=== PATIENT | male | born 1970 | race Caucasian/White ===

== ENCOUNTER 2016-12-19 03:38 | Emergency (ER) | payer BC, OTHER ==
[~2016-12-19] VITALS: Ht 180.3 cm; Wt 108.8 kg
[2016-12-19 03:44] VITALS: TEMP 36.5; Ht 180.3 cm; Wt 108.8 kg
[2016-12-19 04:28] LABS: BASO % 0.6 %; BASO ABS # 0.04 K/uL (0-0.2); COMPLETE YES; EOS % 4.9 %; HEMATOCRIT 42.6 % (42-52); IG% 0.3 %; LYMPH % 41.3 %; MEAN CELL VOLUME 86.6 fL (80-100); MEAN CORPUSCULAR HEMOGLOBIN 30.9 pg (25-34); MEAN CORPUSCULAR HGB CONC 35.7 g/dl (32-36); MEAN PLATELET VOLUME 9.5 fL (7.4-10.4); NEUT % 42.9 %; PLATELET COUNT 291 K/uL (130-400); RED BLOOD COUNT 4.92 M/uL (4.7-6.1); WHITE BLOOD COUNT 6.78 K/uL (4.8-10.8)
[2016-12-19 04:48] LABS: ALT/SGPT 47 U/L (12-78); AST/SGOT 19 U/L (15-37); BLOOD UREA NITROGEN 14 mg/dl (7-18); BUN/CREATININE RATIO 12.5 (10-20); CALCIUM 8.6 mg/dl (8.5-10.1); CARBON DIOXIDE 29 mmol/L (21-32); CHLORIDE 104 mmol/L (98-107); GLUCOSE 130 mg/dl (70-99); POTASSIUM 3.8 mmol/L (3.5-5.1); SODIUM 141 mmol/L (136-145)
[2016-12-19] MEDS ORDERED: KETOROLAC TROMETHAMINE 30 MG/ML VIAL IV STA (04:48)
[2016-12-19 04:53] LABS: ALKALINE PHOSPHATASE 70 U/L (45-117)
[2016-12-19] MEDS ORDERED: NAPR-1169 PO (05:37)
--- NOTE | 2016-12-19 05:40 | EMERGENCY ROOM VISIT NOTE ---
History First contact with patient: 03:43 Chief Complaint: SHOULDER PAIN Stated Complaint: SHOULDER PAIN History of Present Illness The patient is a 46 year old male who presents to the Emergency Room with complaints of severe left shoulder pain that goes down his entire arm for the past several hours. Patient did do some extra work yesterday. Nothing overtly strenuous though. He describes pain as severe, 8 out of 10. Nothing makes it better or worse. Patient denies chest pain, dyspnea, fever, chills, nausea, vomiting, diarrhea, diaphoresis, back pain, leg pain or swelling, abdominal pain. No injury to the area. No prior history of similar symptoms in the past. No prior heart disease. No family history of heart disease. He does not smoke. No blood pressure, no cholesterol. No Diabetes. Review of Systems See HPI for pertinent positives & negatives. A total of 10 systems reviewed and were otherwise negative. Past Medical/Surgical History none Social History Smoking Status: Never Smoker Smokeless Tobacco Use: No Alcohol Use: none Drug Use: none Occupation Status: employed Current/Historical Medications Scheduled Naproxen (Naprosyn), 500 MG PO BID Allergies Coded Allergies: No Known Allergies (Unverified , 12/19/16) Physical Exam Vital Signs Date Time Temp Pulse Resp B/P Pulse Ox O2 Delivery O2 Flow Rate FiO2 12/19/16 05:52 79 18 122/85 96 Room Air 12/19/16 04:57 Room Air 12/19/16 04:57 Room Air 12/19/16 04:23 82 18 150/100 96 Room Air 12/19/16 03:44 36.5 82 20 161/97 96 Room Air Physical Exam VITALS: Vitals are noted on the nurse's note and reviewed by myself. Vital signs stable. GENERAL: Pleasant male, in no acute distress, nondiaphoretic, well-developed well-nourished. SKIN: The skin was without rashes, erythema, edema, or bruising. There is no tenting of the skin. Capillary reflex less than 2 seconds. HEAD: Normocephalic atraumatic. EARS: External auditory canals clear, tympanic membranes pearly young without erythema or effusion bilaterally. EYES: Pupils equal round and reactive to light and accommodation. Conjunctivae without injection, sclerae without icterus. Extraocular movements intact. NOSE: Patent, turbinates without inflammation or discharge. MOUTH: Mucous membranes moist. Pharynx without erythema or exudate. Uvula midline. Airway patent. Tongue does not deviate. NECK: Supple without nuchal rigidity. No lymphadenopathy. No thyromegaly. Cervical spine is nontender. No JVD. HEART: Regular rate and rhythm without murmurs gallops or rubs. LUNGS: Clear to auscultation bilaterally without wheezes, rales or rhonchi. No dullness to percussion. No retractions or accessory muscle use. ABDOMEN: Positive bowel sounds x 4. Normal tympanic percussion. Soft, nontender, without masses or organomegaly. King sign negative. No guarding or rebound tenderness. MUSCULOSKELETAL: No muscle atrophy, erythema, or edema noted. Left shoulder, humerus, elbow, forearm, wrist and hand nontender to palpation. Full range of motion without pain. Radial pulses +2 equal present bilaterally. NEURO: Patient was alert and oriented to person place and time. Normal sensation to light and sharp touch. No focal neurological deficits. Medical Decision & Procedures Laboratory Results 12/19/16 04:10 Red Blood Count 4.92, Mean Corpuscular Volume 86.6, Mean Corpuscular Hemoglobin 30.9, Mean Corpuscular Hemoglobin Concent 35.7, Mean Platelet Volume 9.5, Neutrophils (%) (Auto) 42.9, Lymphocytes (%) (Auto) 41.3, Monocytes (%) (Auto) 10.0, Eosinophils (%) (Auto) 4.9, Basophils (%) (Auto) 0.6, Neutrophils # (Auto ) 2.91, Lymphocytes # (Auto) 2.80, Monocytes # (Auto) 0.68, Eosinophils # (Auto ) 0.33, Basophils # (Auto) 0.04 12/19/16 04:10 Test 12/19/16 04:10 12/19/16 05:42 White Blood Count 6.78 K/uL (4.8-10.8) Red Blood Count 4.92 M/uL (4.7-6.1) Hemoglobin 15.2 g/dL (14.0-18.0) Hematocrit 42.6 % (42-52) Mean Corpuscular Volume 86.6 fL (80-100) Mean Corpuscular Hemoglobin 30.9 pg (25-34) Mean Corpuscular Hemoglobin Concent 35.7 g/dl (32-36) Platelet Count 291 K/uL (130-400) Mean Platelet Volume 9.5 fL (7.4-10.4) Neutrophils (%) (Auto) 42.9 % Lymphocytes (%) (Auto) 41.3 % Monocytes (%) (Auto) 10.0 % Eosinophils (%) (Auto) 4.9 % Basophils (%) (Auto) 0.6 % Neutrophils # (Auto) 2.91 K/uL (1.4-6.5) Lymphocytes # (Auto) 2.80 K/uL (1.2-3.4) Monocytes # (Auto) 0.68 K/uL (0.11-0.59) Eosinophils # (Auto) 0.33 K/uL (0-0.5) Basophils # (Auto) 0.04 K/uL (0-0.2) RDW Standard Deviation 39.6 fL (36.4-46.3) RDW Coefficient of Variation 12.4 % (11.5-14.5) Immature Granulocyte % (Auto) 0.3 % Immature Granulocyte # (Auto) 0.02 K/uL (0.00-0.02) Anion Gap 8.0 mmol/L (3-11) Est Creatinine Clear Calc Drug Dose 103.0 ml/min Estimated GFR () 91.5 Estimated GFR (Non- 79.0 BUN/Creatinine Ratio 12.5 (10-20) Calcium Level 8.6 mg/dl (8.5-10.1) Total Bilirubin 0.6 mg/dl (0.2-1) Direct Bilirubin 0.1 mg/dl (0-0.2) Aspartate Amino Transf (AST/SGOT) 19 U/L (15-37) Alanine Aminotransferase (ALT/SGPT) 47 U/L (12-78) Alkaline Phosphatase 70 U/L (45-117) Total Creatine Kinase 71 U/L (39-308) Creatine Kinase MB < 0.5 ng/ml (0.5-3.6) Creatine Kinase MB Ratio (0-3.0) Troponin I < 0.015 ng/ml (0-0.045) Total Protein 7.8 gm/dl (6.4-8.2) Albumin 4.0 gm/dl (3.4-5.0) Bedside Troponin I 0.000 ng/ml (0-0.045) Medications Administered Medications (Trade) Dose Ordered Sig/Charlotte Route Start Time Stop Time Status Last Admin Dose Admin Ketorolac Tromethamine (Toradol Inj) 30 mg NOW STAT IV 12/19/16 04:48 12/19/16 04:55 DC 12/19/16 04:48 30 MG ED Course Prior records/ancillary studies reviewed. Triage Nursing notes reviewed. The patient's history was concerning for left arm pain Differential diagnosis: Etiologies such as cervical radiculopathy, strain, strain, nerve entrapment, thoracic outlet syndrome, brachial plexus problem, cardiac ischemia, aortic dissection, pulmonary embolism, pneumonia, pneumothorax, musculoskeletal, infections, pericarditis, myocarditis, esophageal rupture, gastrointestinal, as well as others were entertained. Physical examination: As above. ER treatment provided: Patient was observed On reassessment the patient felt better. Diagnostic interpretation by me: The electrocardiogram was negative for pathologic change. Normal sinus, normal intervals, incomplete right bundle branch block, no acute ST-T changes. Impression normal sinus rhythm with incomplete bundle branch block interpreted by myself The labs revealed 2 troponins 2 negative. No worrisome anemia. Imaging studies: Chest x-ray with no acute consolidation, pneumothorax or free air per my interpretation CT C SPINE: slight reversal of the cervical lordosis may be positional or due to muscle spasm. Multilevel degenerative changes in the mid to lower cervical spine. No severe central canal or foraminal stenosis Radiologist: Catalina Copeland M.D. Exam and history seem consistent with cervical radiculopathy. Patient was advised to follow-up with family care for further evaluation and workup for this. Patient was neurovascularly and neurologically intact. Troponin 2 negative. Normal EKG. He was advised to follow-up family care in a day or 2 or here in the ER sooner for chest pain, difficulty breathing, numbness, tingling, worsening signs or symptoms or as needed.By the evaluation outlined above emergent etiologies such as cardiac ischemia, aortic dissection, pulmonary embolism, pneumonia, pneumothorax, infections, pericarditis, myocarditis, gastrointestinal, as well as others were deemed relatively unlikely. The pt informed about the findings as listed above. All questions were answered and pleased with the treatment. Return instructions were outlined and the patient was discharged in stable condition. Outpatient prescription management: naproxen Referral: The patient was referred back to primary care physician for follow-up in 2 to 3 days for a recheck of the current condition. Case reviewed by attending Medical Decision As above Impression Primary Impression: Cervical radiculopathy Additional Impression: Hyperglycemia Departure Information Dispostion Home / Self-Care Condition GOOD Prescriptions Naproxen (Naprosyn) 500 Mg Tab 500 MG PO BID, #30 TAB Prov: Neva Robison .DONALD 12/19/16 Referrals Felisha Busby M.D. (PCP) Patient Instructions My [facility] Additional Instructions Recheck you blood sugar with family doctor, it was high today in the ER. Naproxen may be used for fever or pain. Use 500mg every 12 hours as needed. Take with food. Avoid using more than 1000mg in a 24 hour period. Do not use 1000mg per day for more than three consecutive days without physician direction. Prolonged inappropriate use can lead to stomach upset or ulcers. (AND/OR) Acetaminophen(Tylenol) may be used for fever or pain. Use 1000mg every six hours as needed. Avoid using more than 3000mg in a 24 hour period. Rest and drink plenty of fluids as tolerated. Continue current medications. Avoid strenuous activities and anything that worsens your pain. Resume normal activities once your symptoms resolve. Return to the ER immediately for worsening or persistent arm pain, abdominal pain, vomiting, fevers, chest pains, difficulty breathing, worsening of your condition, or as needed. Follow up with your primary physician in 2-3 days for a recheck of your current condition. Problem Qualifiers
[2016-12-19 05:52] VITALS: BP 122/85; PULSE 79; O2SAT 96
--- NOTE | 2016-12-19 07:19 | DIAGNOSTIC IMAGING REPORT ---
CT SCAN OF THE CERVICAL SPINE CLINICAL HISTORY: Left arm pain. COMPARISON STUDY: No priors. TECHNIQUE: CT scan of the cervical spine is performed from the skull base to the upper thoracic spine. Images are reviewed in the axial, sagittal, and coronal planes. IV contrast was not administered for this examination. CT DOSE: 323.73 mGy.cm FINDINGS: Skeletal structures: The skeletal structures are well mineralized. There is no evidence of fracture or subluxation involving the cervical spine. Vertebral body height and alignment are maintained. There is straightening of the cervical lordosis with mild reversal centered at C4. The odontoid process and lateral masses are intact. The atlantoaxial articulation is preserved noting mild productive degenerative change. The spinous processes appear intact. Small anterior osteophytes are seen in the lower cervical region. No significant neural foraminal stenosis is identified. Intervertebral discs: The disc spaces are well maintained. Central canal: Posterior disc osteophyte complexes at C4-C5 and C5-C6 likely contribute to mild acquired compromise of the central canal. Soft tissues: The prevertebral and paraspinous soft tissues are within normal limits. Calcification is noted within the nuchal ligament. The thyroid gland appears mildly enlarged and heterogeneous. Calvarium: The visualized calvarium at the skull base appears intact. Brain parenchyma: Partially visualized brain parenchyma the skull base is within normal limits. Sinuses and mastoids: The visualized paranasal sinuses are clear. There is a right mastoid effusion. The left mastoid air cells are well pneumatized. Lung apices: Clear as visualized. IMPRESSION: 1. There is no evidence of fracture or subluxation involving the cervical spine. 2. Mild spondylotic change as above, greatest at C4-C5 and C5-C6. Electronically signed by: Sheldon Anguiano M.D. 12/19/2016 7:16 AM Dictated Date/Time: 12/19/2016 7:13 AM
--- NOTE | 2016-12-19 08:15 | DIAGNOSTIC IMAGING REPORT ---
SINGLE VIEW CHEST CLINICAL HISTORY: Atypical chest pain. FINDINGS: An AP, portable, upright chest radiograph is obtained. No prior studies are available for comparison at the time of dictation. The examination is degraded by portable technique and patient rotation. The cardiomediastinal silhouette is unremarkable. There is mild elevation of left hemidiaphragm. The lungs and pleural spaces are clear. No pneumothorax is seen. The bony thorax is grossly intact. IMPRESSION: No active disease in the chest. Electronically signed by: Sheldon Anguiano M.D. 12/19/2016 8:13 AM Dictated Date/Time: 12/19/2016 8:12 AM
[2016-12-19] MEDS ORDERED: OXYC1TAB3 PO (17:54)
[2016-12-19] MEDS ORDERED: METH4PAK PO (17:54)
== END 2016-12-19 06:17 | disposition home or self-care (01) ==
LOC: C.EDB 03:39 → C.EDA 06:17
DX: M54.12 Radiculopathy, cervical region (principal); R73.9 Hyperglycemia, unspecified

== ENCOUNTER 2016-12-19 15:16 | Emergency (ER) | payer BC ==
[~2016-12-19] VITALS: Ht 180.3 cm; Wt 106.9 kg
[~2016-12-19 15:16] MED LIST: NAPR-1169 PO
[2016-12-19 15:19] VITALS: TEMP 36.4; Ht 180.3 cm; Wt 106.9 kg
[2016-12-19] MEDS ORDERED: ONDANSETRON INJ 2 MG/ML 2 ML VIAL IV STA (15:26)
[2016-12-19] MEDS ORDERED: DEXAMETHASONE SOD INJ 10 MG/ML VIAL IV ONE (15:30)
[2016-12-19] MEDS: MoRPHine SULFATE 10 MG/ML CARP/VIAL IV PRN ×3 (15:59→18:07)
--- NOTE | 2016-12-19 16:04 | EMERGENCY ROOM VISIT NOTE ---
History Report prepared by Jonathan: Lizet Cochran Under the Supervision of: Dr. Sheldon Prince M.D. First contact with patient: 15:24 Chief Complaint: ARM PAIN Stated Complaint: INCREASED PAIN - LEFT ARM - SEEN IN ER LAST PM History of Present Illness The patient is a 46 year old male who presents to the Emergency Room with complaints of worsening left arm and neck pain beginning yesterday afternoon. The patient states that the pain began in his neck yesterday. He took Ibuprofen and went to bed. He notes he woke up around 2am this morning in significant pain and came to the ED. A CT scan and X-ray were done. The CT scan showed bone spurring of the neck but no fractures. His lab testing was normal including his heart laboratories. He states that today around noon the pain worsened to be a 9 /10 in severity. He describes the pain as "Jesus horse" kind of sensation. The pain is also now radiating into his entire left arm. The patient denies shortness of breath, chest pain, trauma to arm or neck, or pain worsening with exertion. Source of History: patient Onset: yesterday afternoon Position: neck, arm (left) Symptom Intensity: 9/10 Quality: other ("Jesus horse" sensation) Timing: worsening Associated Symptoms: No SOB, No chest pain Note: Patient denies trauma to neck or arm. Review of Systems See HPI for pertinent positives & negatives. A total of 10 systems reviewed and were otherwise negative. Past Medical & Surgical Medical Problems: (1) No Known Active Medical Problems Family History Cancer Social History Smoking Status: Never Smoker Alcohol Use: none Drug Use: none Marital Status: Housing Status: lives with significant other Occupation Status: employed Current/Historical Medications Scheduled Methylprednisolone (Medrol Dosepak), 1 PKT PO UD Naproxen (Naprosyn), 500 MG PO BID Scheduled PRN Oxycodone Ir (Roxicodone Ir), 1-2 TAB PO Q4H PRN for Pain Allergies Coded Allergies: No Known Allergies (Unverified , 12/19/16) Physical Exam Vital Signs Date Time Temp Pulse Resp B/P Pulse Ox O2 Delivery O2 Flow Rate FiO2 12/19/16 18:16 80 20 117/80 100 12/19/16 17:06 87 12/19/16 16:52 96 Room Air 12/19/16 16:52 82 20 123/84 96 Room Air 12/19/16 15:19 36.4 90 18 156/97 96 Room Air Physical Exam GENERAL: Patient does have some pain relief putting left arm over his head and the pain worsens with compression of cervical spine. HEENT: No acute trauma, normocephalic atraumatic, mucous membranes moist, no nasal congestion, no scleral icterus. NECK: No stridor, tracheal midline, somewhat tender to palpate left posterior cervical musculature and the left trapezius muscle has some slight spasm. LUNGS: Clear to auscultation bilaterally, no wheeze, no rhonchi, breath sounds equal. HEART: Without murmurs gallops or rubs, regular rate and rhythm. ABDOMEN: Soft, nontender, bowel sounds positive, no hernias, no peritonitis. EXTREMITIES: No cyanosis or edema, full range of motion of all the joints without pain or difficulty, no signs for acute trauma. Strong and equal radial pulses bilaterally. NEUROLOGIC: Oriented x 3, no acute motor or sensory deficits, no focal weakness. SKIN: No rash, no jaundice, no diaphoresis. Medical Decision & Procedures ER Provider Diagnostic Interpretation: MRI results as stated below per my review and radiologist interpretation: MRI OF THE CERVICAL SPINE WITHOUT CONTRAST CLINICAL HISTORY: Severe left arm and shoulder pain. Numbness. COMPARISON: CT of the cervical spine December 19, 2016. TECHNIQUE: Utilizing a 1.5 Tete magnet and dedicated coil, multiplanar, multiecho imaging of the cervical spine was performed without IV contrast. FINDINGS: There is straightening of the normal cervical lordosis. Vertebral body heights are maintained and there is no marrow replacement or marrow edema. Cervical cord signal and caliber are normal. There is no intracanalicular mass or fluid collection. Visualized portions of the posterior fossa are unremarkable. C2-C3: The central canal and neural foramen are patent. C3-C4: There is minimal posterior disc osteophyte complex. There is minimal narrowing of the central canal. The neural foramen are patent. C4-C5: Mild posterior disc osteophyte complex is noted. There is mild narrowing of the central canal. The neural foramen are patent. C5-C6: There is a moderate to large left paracentral/foraminal disc protrusion that results in moderate narrowing of the left aspect of the canal. This contacts and deforms the left ventral aspect of the cord. There is marked narrowing of the proximal left neural foramen. There is mild narrowing of the right neural foramen. C6-C7: The central canal and neural foramen are patent. C7-T1: The central canal and neural foramen are patent. IMPRESSION: 1. Moderate to large left paracentral/left foraminal disc protrusion at C5-C6 that results in moderate narrowing of the left aspect of the canal and marked narrowing of the left neural foramen at this level. 2. Otherwise, mild degenerative changes of the cervical spine, as described above. 3. Normal cervical cord signal and caliber. Electronically signed by: Luca Oviedo M.D. 12/19/2016 4:53 PM Dictated Date/Time: 12/19/2016 4:47 PM Laboratory Results Test 12/19/16 15:53 Troponin I < 0.015 ng/ml (0-0.045) Laboratory results reviewed by me. Medications Administered Medications (Trade) Dose Ordered Sig/Charlotte Route Start Time Stop Time Status Last Admin Dose Admin Dexamethasone Sodium Phosphate (Decadron Inj) 10 mg NOW ONCE IV 12/19/16 15:30 12/19/16 15:34 DC 12/19/16 15:58 10 MG Morphine Sulfate (MoRPHine SULFATE INJ) 6 mg Q15M PRN IV 12/19/16 15:30 12/19/16 18:47 DC 12/19/16 18:07 6 MG Ondansetron HCl (Zofran Inj) 4 mg NOW STAT IV 12/19/16 15:26 12/19/16 15:34 DC 12/19/16 15:57 4 MG ECG Indication: back/shoulder pain Rate (beats per minute): 87 Rhythm: normal sinus Findings: no acute ischemic change, no ectopy ED Course 1525: The patient was evaluated in room C7. A complete history and physical exam was performed. 1526: Zofran Inj 4 mg IV. 1530: Morphine Sulfate Inj 6 mg IV, Decadron Inj 10 mg IV. 1708: I reevaluated the patient and reviewed his MRI results with him. 1735: I spoke with Dr. Jones about the patient. He will have the patient follow up in the office on Thursday. He would like the patient to be sent home with pain medication and steroids. 1755: Reevaluated the patient. Discussed results and discharge instructions: He verbalized understanding and agreement. The patient is ready for discharge. Medical Decision The patient is a 46 year old male who presents to the ED with complaints of left arm pain. Differential diagnoses considered include herniated cervical disc disease, nerve impingement, muscle spasm, cardiac ischemia, neurovascular compromise. The patient presents with left shoulder and neck pain. On exam, there was no evidence for left upper extremity neurovascular compromise. The patient's pain seemed to worsen with cervical spine compression. His pain lessened when he had his left arm up over his head. EKG was done, no acute ischemia. Cardiac troponin testing did not show any elevation. I did review the patient's other blood work and chest film done earlier today-no significant abnormalities. An MRI of the cervical spine was done, there was a large C5-C6 left-sided disc herniation with foraminal compromise. I talked to the patient and discussed his MRI findings. He had received IV Decadron, IV morphine and IV Zofran, he was more comfortable. I spoke with the on-call spinal surgeon. The patient is being discharged with an appointment in a few days. He may require surgery if not improving with time , steroids and other conservative measures. The patient was encouraged to return for worsening discomfort. [place] Drug Monitoring Program Search Results: patient reviewed within database, no issues identified Consults Time Called: 173 Consulting Physician: Dr. Jones - Surgery Returned Call: [address] Jones about the patient. He will have the patient follow up in the office on Thursday. He would like the patient to be sent home with pain medication and steroids. Impression Primary Impression: Cervical disc herniation Additional Impression: Arm pain, left Scribe Attestation The scribe's documentation has been prepared under my direction and personally reviewed by me in its entirety. I confirm that the note above accurately reflects all work, treatment, procedures, and medical decision making performed by me. Departure Information Dispostion Home / Self-Care Prescriptions Methylprednisolone (MEDROL DOSEPAK) 4 Mg Ernie 1 PKT PO UD for 6 Days, #1 PKT Prov: Sheldon Prince M.D. 12/19/16 Oxycodone Ir (Roxicodone Ir) 5 Mg Tab 1-2 TAB PO Q4H Y for Pain, #20 TAB Prov: Sheldon Prince M.D. 12/19/16 Referrals Felisha Busby M.D. (PCP) Forms HOME CARE DOCUMENTATION FORM, IMPORTANT VISIT INFORMATION Patient Instructions My [facility] Additional Instructions call and set up appt with Dr. Jones--call thursday in the early am medrol dos pack as directed oxy ir 1-2 tab every 4 hours for pain otc laxative to prevent constipation continue the meds prescribed earlier return for fever or uncontrolled pain Problem Qualifiers
[2016-12-19 16:52] VITALS: O2SAT 96
--- NOTE | 2016-12-19 16:55 | DIAGNOSTIC IMAGING REPORT ---
MRI OF THE CERVICAL SPINE WITHOUT CONTRAST CLINICAL HISTORY: Severe left arm and shoulder pain. Numbness. COMPARISON: CT of the cervical spine December 19, 2016. TECHNIQUE: Utilizing a 1.5 Ette magnet and dedicated coil, multiplanar, multiecho imaging of the cervical spine was performed without IV contrast. FINDINGS: There is straightening of the normal cervical lordosis. Vertebral body heights are maintained and there is no marrow replacement or marrow edema. Cervical cord signal and caliber are normal. There is no intracanalicular mass or fluid collection. Visualized portions of the posterior fossa are unremarkable. C2-C3: The central canal and neural foramen are patent. C3-C4: There is minimal posterior disc osteophyte complex. There is minimal narrowing of the central canal. The neural foramen are patent. C4-C5: Mild posterior disc osteophyte complex is noted. There is mild narrowing of the central canal. The neural foramen are patent. C5-C6: There is a moderate to large left paracentral/foraminal disc protrusion that results in moderate narrowing of the left aspect of the canal. This contacts and deforms the left ventral aspect of the cord. There is marked narrowing of the proximal left neural foramen. There is mild narrowing of the right neural foramen. C6-C7: The central canal and neural foramen are patent. C7-T1: The central canal and neural foramen are patent. IMPRESSION: 1. Moderate to large left paracentral/left foraminal disc protrusion at C5-C6 that results in moderate narrowing of the left aspect of the canal and marked narrowing of the left neural foramen at this level. 2. Otherwise, mild degenerative changes of the cervical spine, as described above. 3. Normal cervical cord signal and caliber. Electronically signed by: Luca Oviedo M.D. 12/19/2016 4:53 PM Dictated Date/Time: 12/19/2016 4:47 PM
[2016-12-19] MEDS ORDERED: OXYC1TAB3 PO (17:54)
[2016-12-19] MEDS ORDERED: METH4PAK PO (17:54)
[2016-12-19 18:16] VITALS: BP 117/80; PULSE 80; O2SAT 100
== END 2016-12-19 18:20 | disposition home or self-care (01) ==
LOC: C.EDB 15:17 → C.EDC 18:20
DX: M50.20 Other cervical disc displacement, unspecified cervical region (principal); M79.602 Pain in left arm; Z80.9 Family history of malignant neoplasm, unspecified

== ENCOUNTER 2024-09-23 03:40 | Inpatient (IN) ==
[2024-09-23] MEDS: PROMETHAZINE 12.5 MG/50.5 ML BAG IV STA (04:23)
[2024-09-23 04:28] LABS: Basophils # (auto) 0.05 K/uL (0.00-0.20); Basophils % (auto) 0.5 %; Eosinophils # (auto) 0.11 K/uL (0.00-0.50); Hematocrit (blood only) 31.9 % (42.0-52.0); Hemoglobin 10.2 g/dl (14.0-18.0); Immature Granulocytes # (auto) 0.06 K/uL (0.01-0.20); Immature Granulocytes % (auto) 0.5 %; Lymphocytes # (auto) 0.72 K/uL (1.20-3.40); Lymphocytes % (auto) 6.5 %; Mean Corpuscular Volume 78.2 fL (80.0-100.0); Mean Platelet Volume 9.6 fL (9.4-12.4); Monocytes # (auto) 1.02 K/uL (0.11-0.59); Monocytes % (auto) 9.2 %; Neutrophils # (auto) 9.11 K/uL (1.40-6.50); Neutrophils % (auto) 82.3 %; Platelet Count 583 K/uL (130-400); RDW Coefficient of Variation 20.3 % (11.5-14.5); RDW Standard Deviation 57.1 fL (36.4-46.3); Red Blood Count 4.08 M/uL (4.70-6.10); White Blood Count 11.07 K/ul (4.8-10.8)
[2024-09-23 04:45] LABS: iSTAT Creatinine 1.1 mg/dl (0.6-1.3); iSTAT Hemoglobin 10.5 g/dl (14.0-18.0); iSTAT Ionized Calcium 1.09 mmol/l (1.12-1.32); iSTAT Potassium 3.4 mmol/L (3.3-5.0)
[2024-09-23 04:46] LABS: Albumin Globulin Ratio 1.1 (0.9-2); Albumin Level 3.7 gm/dl (3.4-5.0); BUN Creatinine Ratio 8.8 (10-20); Calcium 9.2 mg/dl (8.6-10.3); Creatinine Clr Calc Pharmacy 118.3 ml/min; Globulin 3.3 gm/dl (2.5-4.0); Magnesium 1.8 mg/dl (1.7-2.4); Potassium 3.4 mmol/L (3.5-5.1)
[2024-09-23] MEDS: OPTIRAY 320 100ml IV ONE (04:46)
[2024-09-23 04:59] LABS: Anisocytosis Present; Polychromasia 2+
--- NOTE | 2024-09-23 05:23 | CT Scan Report ---
Exam(s): CT ABDOMEN + PELVIS With Contrast IV Amt: 93 ML OPTIRAY 320 EXAM: CT Abdomen and Pelvis With Intravenous Contrast CLINICAL HISTORY: Reason for exam: n/v, hx colon ca, recent resection, hx sbo. TECHNIQUE: Axial computed tomography images of the abdomen and pelvis with intravenous contrast. CTDI is 26.91 mGy and DLP is 1549.02 mGy-cm. Automated exposure control was utilized for the study. A dose lowering technique was utilized adhering to the principles of ALARA. CONTRAST: Patient received 93 ML OPTIRAY 320 of IV contrast COMPARISON: 09/12/24 FINDINGS: Lung bases: Right-sided small pleural effusion ABDOMEN: Liver: Lesion in the right liver with air-fluid level measuring 4.3 x 5.0 cm, with adjacent surgical clips. Gallbladder and bile ducts: Unremarkable. No calcified stones. No ductal dilation. Pancreas: Unremarkable. No mass. No ductal dilation. Spleen: Unremarkable. No splenomegaly. Adrenals: Unremarkable. No mass. Kidneys and ureters: Unremarkable. No solid mass. No hydronephrosis. Stomach and bowel: Small bowel dilation with transition point in the abdomen, could represent small bowel obstruction. No mucosal thickening. PELVIS: Appendix: No findings to suggest acute appendicitis. Bladder: Unremarkable. No mass. Reproductive: Unremarkable as visualized. ABDOMEN and PELVIS: Intraperitoneal space: Postoperative changes related to recent resection with anastomosis in the right mid abdomen. No free air. No significant fluid collection. Bones/joints: No acute fracture. No dislocation. Soft tissues: Postoperative changes along the ventral abdominal wall.. Vasculature: Unremarkable. No abdominal aortic aneurysm. Lymph nodes: Unremarkable. No enlarged lymph nodes. IMPRESSION: Small bowel dilation with transition point in the abdomen, likely represent small bowel obstruction. Postoperative changes related to recent resection with anastomosis in the right mid abdomen. Lesion in the right liver with air-fluid level measuring 4.3 x 5.0 cm, with adjacent surgical clips, could represent a hepatic abscess or postoperative changes. Electronically signed by: Sathish Rodriugez MD 09/23/24 05:22 AM
[2024-09-23 05:48] LABS: Appearance Urine Clear (Clear); Bacteria Urine Automated None Seen (None Seen); Bilirubin Urine Negative (Negative); Blood Urine Negative (Negative); Color Urine Yellow; Epithelial Cell Urine Auto 0-2 /hpf (0-2); Glucose Urine UA Negative (Negative); Granular Casts Urine Present /lpf (None Prsent); Ketones Urine 1+ (Negative); Leukocyte Esterase Urine Negative (Negative); Nitrite Urine Negative (Negative); Protein Urine 1+ (Negative); Urobilinogen Urine Negative (Negative); WBC Urine Automated 0-5 /hpf (0-5)
[2024-09-23] MEDS: SODIUM CHLORIDE 0.9% 1,000 ML IV ONE (05:56)
--- NOTE | 2024-09-23 05:59 | Emergency Department Note ---
History of Present Illness General Chief complaint: Vomiting Stated complaint: NAUSEA,VOMITING Time Seen by Provider: 09/23/24 03:52 History of Present Illness Maximum Pain Intensity: 3 This is a 54-year-old male presenting to the emergency department for evaluation of nausea, vomiting, and lower abdominal pain. Patient has unfortunate history of colon cancer and had recent partial colectomy of the ascending colon and partial resection of his liver with reanastomosis. This was performed at [facility] last week and patient was discharged home on 09/21/2024. Patient developed the nausea and vomiting symptoms between 1 AM and 2 AM on 09/23/2024, and reached out to his contacts at [facility]. He has Zofran at home, and was instructed to use these. Patient used the medication, but still had an episode of emesis afterwards. He has not had a normal bowel movement today, but was moving his bowels prior to discharge from [facility]. He does not have any fever or chills. His abdominal discomfort is a 2/10. No difficulty urinating. No chest pain, chest tightness, or shortness of breath. He has had small bowel obstructions in the past and is concerned about the same. Home Medications Medication Instructions Recorded Confirmed Type acetaminophen 500 mg tablet 2,000 mg PO DIRECTED PRN Pain 09/12/24 09/23/24 History levothyroxine 75 mcg tablet 75 mcg PO DAILY 09/12/24 09/23/24 History ondansetron 4 mg disintegrating 4 mg PO Q6H PRN n/v 09/12/24 09/23/24 History tablet Phospha 250 Neutral 250 mg PO QID 09/23/24 09/23/24 History enoxaparin 40 mg/0.4 mL 40 mg subcut DAILY 09/23/24 09/23/24 History subcutaneous syringe gabapentin 100 mg capsule 100 mg PO Q8H 09/23/24 09/23/24 History lactated Ringers 100 ml continuous IV infusion UD 09/23/24 Rx #6,000 mL metoclopramide HCl 5 mg tablet 5 mg PO QID 09/23/24 09/23/24 History oxycodone 5 mg tablet 5 mg PO Q4H PRN Pain 09/23/24 09/23/24 History polyethylene glycol 3350 17 17 g PO DAILY PRN Constipation 09/23/24 09/23/24 History gram/dose oral powder (Miralax) sennosides 8.6 mg tablet (Senokot) 17.2 mg PO BID 09/23/24 09/23/24 History Allergies Allergy/AdvReac Type Severity Reaction Status Date / Time orange Allergy Intermediate Vomiting Unverified 09/23/24 09:20 Past Med/Surg History Problem List (Updated 09/23/24 @ 23:08 by Gokul Zepeda PA-C) Postoperative abscess Status post colon resection Small bowel obstruction (Acute) Bowel obstruction (Acute) Obesity (BMI 30.0-34.9) Colon carcinoma metastatic to liver Primary adenocarcinoma of ascending colon Colon adenocarcinoma (Acute) Medical History (Updated 09/23/24 @ 23:08 by Gokul Zepeda PA-C) Hypothyroidism Arthritis History of anesthesia reaction in 05/2024, w/tooth extraction under anesthesia, oral dr told pt he woke up "under the anesthesia and may have needed a little more" No known health problems Surgical History (Updated 09/23/24 @ 06:48 by Joshua Alexander MD) H/O colonoscopy Hx of tooth extraction Family History Grandmother No problems noted. Grandmother (Maternal) Colorectal cancer Brother Chondrosarcoma Denies family history of Ovarian cancer Prostate cancer Myocardial infarction Breast cancer Social History Smoking Status: Never smoker Second Hand Exposure: No; Do You Dip or Chew Tobacco: No; Hx Alcohol Use: No Hx Substance Use: No Preferred Language: Niuean Communication Ability: Effective Visual Impairment: Limited Hearing Ability: Hard of Hearing Contracting Officer Required: No Beliefs That Will Affect Care: None marital status: Current Living Situation: Spouse Current Living Situation Comment: current occupational status: employed 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 How many Children do You have: 0 Feels Safe at Home: Yes Childhood Exposure to Second-Hand Smoke: Yes Diet: regular caffeine: Yes during the past year weight has: remained stable Dental Care, Regularly: No Physical Activity Frequency: Daily Seatbelt Use: always Sunscreen Use: Yes Assistive Devices: None Review of Systems A total of 10 systems reviewed and were otherwise negative Physical Exam Vital Signs Vital Signs - 24 hr 09/23/24 03:44 09/23/24 04:22 09/23/24 06:14 Temperature 36.4 C L Temperature Source Temporal Artery Scan Pulse Rate 106 H 89 Pulse Rate [Apical] 90 Pulse Rhythm Regular Pulse Strength Normal Respiratory Rate 18 14 Respiratory Effort / Characteristics Non-Labored Spontaneous Non-Labored Spontaneous Respiratory Depth Normal Normal Respiratory Pattern Regular Regular Blood Pressure 127/82 Blood Pressure [Right Arm] 137/90 Blood Pressure Mean 97 Blood Pressure Mean [Right Arm] 105 Blood Pressure Position Sitting Pulse Oximetry 98 95 Oxygen Delivery Method Room Air Room Air Sepsis Recent Fever Within 48 Hours No Sepsis New/Unexplained Change in Mental Status N/A Sepsis Action Taken by Nursing No Action Required VITALS: Vitals are noted on the nurse's note and reviewed by myself. Vital signs stable. GENERAL: White male who is pleasant and cooperative. HEAD: Normocephalic atraumatic. HEART: Regular rate and rhythm without murmurs gallops or rubs. LUNGS: Clear to auscultation bilaterally without wheezes, rales or rhonchi. No retractions or accessory muscle use. ABDOMEN: Positive normal bowel sounds x 4. Soft without significant tenderness. Diminished bowel sounds. MUSCULOSKELETAL: No muscle atrophy, erythema, or edema noted. Full range of motion in all extremities. Course Administered Medications Hydromorphone HCl (Hydromorphone Inj 0.5 Mg/0.5 Ml Syr) 0.5 mg IV Q3H PRN PRN Reason: Severe Pain (Scale 7, 8, 9,10) Stop: 10/07/24 08:44 Last Admin: 09/23/24 20:56 Dose: 0.5 mg Documented By: Admin: 09/23/24 17:35 Dose: 0.5 mg Documented By: Admin: 09/23/24 14:35 Dose: 0.5 mg Documented By: Admin: 09/23/24 11:06 Dose: 0.5 mg Documented By: YENY Piperacillin Sod/Tazobactam Sod (Zosyn) 4.5 gm in 100 mls @ 25 mls/hr IV Q8H [facility]; Protocol Stop: 10/03/24 10:59 Last Infusion: 09/23/24 21:58 Dose: Infused Documented By: Admin: 09/23/24 17:55 Dose: 25 mls/hr Documented By: Infusion: 09/23/24 15:35 Dose: Infused Documented By: Admin: 09/23/24 11:31 Dose: 25 mls/hr Documented By: YENY Lactated Ringer's (Lr) 1,000 mls @ 100 mls/hr IV .Q10H IDA Stop: 09/25/24 17:59 Last Admin: 09/23/24 17:55 Dose: 100 mls/hr Documented By: BRICE Discontinued Medications Hydromorphone HCl (Hydromorphone Inj 0.5 Mg/0.5 Ml Syr) 0.5 mg IV NOW STA Stop: 09/23/24 06:08 Last Admin: 09/23/24 06:11 Dose: 0.5 mg Documented By: MED Promethazine HCl (Phenergan) 12.5 mg in 50.5 mls @ 202 mls/hr IV NOW STA Stop: 09/23/24 04:11 Last Infusion: 09/23/24 05:15 Dose: Infused Documented By: well site drilling engineer: 09/23/24 04:23 Dose: 202 mls/hr Documented By: MED Sodium Chloride (Nss) 1,000 mls @ 999 mls/hr IV .Q1H1M ONE Stop: 09/23/24 06:43 Last Infusion: 09/23/24 07:02 Dose: Infused Documented By: Admin: 09/23/24 05:56 Dose: 999 mls/hr Documented By: SOFY Pantoprazole Sodium (Protonix) 40 mg in 10 mls @ 5 mls/min IV NOW ONE Stop: 09/23/24 06:29 Last Admin: 09/23/24 08:27 Dose: 5 mls/min Documented By: SIN Piperacillin Sod/Tazobactam Sod (Zosyn) 4.5 gm in 100 mls @ 200 mls/hr IV NOW ONE; Protocol Stop: 09/23/24 06:57 Last Infusion: 09/23/24 07:20 Dose: Infused Documented By: Admin: 09/23/24 06:49 Dose: 200 mls/hr Documented By: MED Potassium Chloride/Sodium Chloride (Normal Saline W/20 Meq Kcl) 20 meq in 1,000 mls @ 80 mls/hr IV .[id number] IDA Stop: 09/23/24 18:59 Last Infusion: 09/23/24 17:55 Dose: Infused Documented By: Admin: 09/23/24 07:32 Dose: 80 mls/hr Documented By: SIN Magnesium Sulfate/Dextrose (Magnesium Sulfate / D5w) 1 gm in 100 mls @ 50 mls/hr IV Q2H IDA Stop: 09/23/24 10:44 Last Infusion: 09/23/24 11:47 Dose: Infused Documented By: Admin: 09/23/24 09:21 Dose: 50 mls/hr Documented By: Infusion: 09/23/24 09:21 Dose: Infused Documented By: Admin: 09/23/24 07:21 Dose: 50 mls/hr Documented By: SIN Ioversol (Optiray 320 100ml) 100 ml IV ONCE ONE Stop: 09/23/24 04:47 Last Admin: 09/23/24 04:46 Dose: 93 ml Documented By: BRITTANY Medical Decision Making Differential Diagnosis Differential diagnosis: Etiologies such as biliary colic, cholecystitis, hepatitis, pancreatitis, cardiac disease, pancreatitis, gastritis, peptic ulcer disease, appendicitis, cystitis, diverticulitis, mesenteric ischemia, inflammatory bowel disease, ileus, bowel obstruction, testicular/adnexal torsion, aortic pathology, shingles, as well as others were considered Laboratory Data 09/23/24 04:11 09/23/24 04:11 Lab Results 09/23/24 09/23/24 09/23/24 Range/Units 04:11 04:31 04:57 WBC 11.07 H (4.8-10.8) K/ul RBC 4.08 L (4.70-6.10) M/uL Hgb 10.2 L (14.0-18.0) g/dl POC Hgb 10.5 L (14.0-18.0) g/dl Hct 31.9 L (42.0-52.0) % POC Hct 31 L (42-52) % MCV 78.2 L (80.0-100.0) fL MCH 25.0 (25.0-34.0) pg MCHC 32.0 (32.0-36.0) g/dL RDW Std Deviation 57.1 H (36.4-46.3) fL RDW Coeff of Marianela 20.3 H (11.5-14.5) % Plt Count 583 H (130-400) K/uL MPV 9.6 (9.4-12.4) fL Immature Gran % (Auto) 0.5 % Neut % (Auto) 82.3 % Lymph % (Auto) 6.5 % [place] % (Auto) 9.2 % Eos % (Auto) 1.0 % Baso % (Auto) 0.5 % Neut # (Auto) 9.11 H (1.40-6.50) K/uL Lymph # (Auto) 0.72 L (1.20-3.40) K/uL [place] # (Auto) 1.02 H (0.11-0.59) K/uL Eos # (Auto) 0.11 (0.00-0.50) K/uL Baso # (Auto) 0.05 (0.00-0.20) K/uL Immature Gran # (Auto) 0.06 (0.01-0.20) K/uL Polychromasia 2+ Anisocytosis Present POC Sodium 134 L (135-144) mmol/L Sodium 134 L (136-145) mmol/L POC Potassium 3.4 (3.3-5.0) mmol/L Potassium 3.4 L (3.5-5.1) mmol/L POC Chloride 91 L (101-112) mmol/L Chloride 94 L (98-107) mmol/L Carbon Dioxide 29 (21-32) mmol/L POC Total CO2 30 (24-31) mmol/L Anion Gap 11 (3-11) POC Anion Gap 17.0 (16-25) mmol/L POC BUN 6 L (7-18) mg/dl BUN 8 (6-23) mg/dl Creatinine 0.91 (0.6-1.4) mg/dl POC Creatinine 1.1 (0.6-1.3) mg/dl Est Cr Clr Drug Dosing 118.3 ml/min eGFR 98.92 BUN/Creatinine Ratio 8.8 L (10-20) Glucose 121 H (70-99(Fasting)) mg/dl POC Glucose (other) 118 H (70-99) mg/dl Calcium 9.2 (8.6-10.3) mg/dl POC Ioniz Calcium Gerardo 1.09 L (1.12-1.32) mmol/l Magnesium 1.8 (1.7-2.4) mg/dl Total Bilirubin 1.0 (0.2-1.0) mg/dl AST 25 (13-39) U/L ALT 38 (7-52) U/L Alkaline Phosphatase 106 H (34-104) U/L Total Protein 7.0 (6.0-8.3) gm/dl Albumin 3.7 (3.4-5.0) gm/dl Globulin 3.3 (2.5-4.0) gm/dl Albumin/Globulin Ratio 1.1 (0.9-2) Lipase 39 (11-82) U/L Urine Color Yellow Urine Appearance Clear (Clear) Urine pH 6.0 (4.5-7.5) Ur Specific [place] 1.030 (1.000-1.030) Urine Protein 1+ H (Negative) Urine Glucose (UA) Negative (Negative) Urine Ketones 1+ H (Negative) Urine Blood Negative (Negative) Urine Nitrite Negative (Negative) Urine Bilirubin Negative (Negative) Urine Urobilinogen Negative (Negative) Ur Leukocyte Esterase Negative (Negative) Urine WBC (Auto) 0-5 (0-5) /hpf Urine RBC (Auto) 6-10 H (0-2) /hpf U Hyaline Cast (Auto) 6-10 H (0-2) /lpf U Epithel Cells (Auto) 0-2 (0-2) /hpf Urine Bacteria (Auto) None Seen (None Seen) Granular Casts Present A (None Prsent) /lpf Imaging Data Radiologist's Impression: Abdomen/Pelvis CT 09/23/24 03:52 Exam(s): CT ABDOMEN + PELVIS With Contrast IV Amt: 93 ML OPTIRAY 320 EXAM: CT Abdomen and Pelvis With Intravenous Contrast CLINICAL HISTORY: Reason for exam: n/v, hx colon ca, recent resection, hx sbo. TECHNIQUE: Axial computed tomography images of the abdomen and pelvis with intravenous contrast. CTDI is 26.91 mGy and DLP is 1549.02 mGy-cm. Automated exposure control was utilized for the study. A dose lowering technique was utilized adhering to the principles of ALARA. CONTRAST: Patient received 93 ML OPTIRAY 320 of IV contrast COMPARISON: 09/12/24 FINDINGS: Lung bases: Right-sided small pleural effusion ABDOMEN: Liver: Lesion in the right liver with air-fluid level measuring 4.3 x 5.0 cm, with adjacent surgical clips. Gallbladder and bile ducts: Unremarkable. No calcified stones. No ductal dilation. Pancreas: Unremarkable. No mass. No ductal dilation. Spleen: Unremarkable. No splenomegaly. Adrenals: Unremarkable. No mass. Kidneys and ureters: Unremarkable. No solid mass. No hydronephrosis. Stomach and bowel: Small bowel dilation with transition point in the abdomen, could represent small bowel obstruction. No mucosal thickening. PELVIS: Appendix: No findings to suggest acute appendicitis. Bladder: Unremarkable. No mass. Reproductive: Unremarkable as visualized. ABDOMEN and PELVIS: Intraperitoneal space: Postoperative changes related to recent resection with anastomosis in the right mid abdomen. No free air. No significant fluid collection. Bones/joints: No acute fracture. No dislocation. Soft tissues: Postoperative changes along the ventral abdominal wall.. Vasculature: Unremarkable. No abdominal aortic aneurysm. Lymph nodes: Unremarkable. No enlarged lymph nodes. IMPRESSION: Small bowel dilation with transition point in the abdomen, likely represent small bowel obstruction. Postoperative changes related to recent resection with anastomosis in the right mid abdomen. Lesion in the right liver with air-fluid level measuring 4.3 x 5.0 cm, with adjacent surgical clips, could represent a hepatic abscess or postoperative changes. Electronically signed by: Sathish Rodriguez MD 09/23/24 05:22 AM MDM Narrative Physical exam and history were performed. Nursing notes, EMR, and Medication List were personally reviewed. No social concerns were identified as barriers to patients care. Patient appears to have nausea bringing him to the ER. On presentation the patient does not appear toxic. Abdomen is soft without significant tenderness. I did discuss options of care with the patient. IV access was established and labs were obtained. CT scan was performed. Patient did not initially desire pain medication, but was nauseated and was given IV Phenergan. Patient's blood work is as above and was reviewed. He does not have a significantly elevated white blood cell count, gross anemia, bandemia, or significant electrolyte imbalance. Transaminases are not significantly elevated. CT scan was performed and reviewed by myself and radiology. He appears to have a small bowel obstruction with likely transition point in the right lower quadrant. There is also evidence of his hepatic resection. Case discussed with my attending. I did reach out to the on-call surgical team. Recommendation is for NG tube, n.p.o., hydration, and admission through the hospitalist service. I did reevaluate the patient and discussed plan of care. Patient would like pain medication and was given a small amount of IV Dilaudid. Case was discussed with the on-call hospitalist team, who did evaluate the patient here in the ER. Please see their dictation for further patient course, plan, and disposition. The chart was completed utilizing [employer] Speech Voice Recognition Software. Grammatical errors, random word insertions, pronoun errors, and incomplete sentences are an occasional consequence of this system due to software limitations, ambient noise, and hardware issues. Any formal questions or concerns about the content, text, or information contained within the body of this dictation should be directly addressed to the provider for clarification. Impression & Plan Small bowel obstruction Discharge Plan Visit Data Chief Complaint: Vomiting Stated Complaint: NAUSEA,VOMITING ED Provider: Alejandro Silverman ED Midlevel Provider: Gokul Zepeda Discharge Problem: Small bowel obstruction Patient Disposition: Admitted As Inpatient Discharge Instructions Interventions: ED Discharge Assessment Last Done: 09/23/24 15:05
[2024-09-23] MEDS: HYDROmorphone INJ 0.5 MG/0.5 ML SYR IV STA (06:11)
[2024-09-23] MEDS ORDERED: ACETAMINOPHEN 1,000 MG/100 ML VIAL IV PRN (06:34)
[2024-09-23] MEDS ORDERED: KETOROLAC TROMETHAMINE 15 MG/ML VIAL IV PRN (06:34)
[2024-09-23] MEDS: PIPERACILLIN/TAZOBACTAM 4.5 GM/100 ML BAG IV ONE (06:49)
--- NOTE | 2024-09-23 06:54 | History & Physical Report ---
Date of Service September 23, 2024 Assessment & Plan (1) Small bowel obstruction: (2) Colon carcinoma metastatic to liver: (3) Primary adenocarcinoma of ascending colon: (4) Colon adenocarcinoma: (5) Status post colon resection: (6) Hypothyroidism: Plan Small bowel obstruction/status post partial colectomy of ascending colon/partial resection liver- NPO Continue NG tube to low intermittent suction Pantoprazole 40 mg IV now and every morning Zosyn 4.5 g IV now and every 8 hours Phenergan 12.5 mg IV every 6 hours as needed Patient reports that Zofran given orally caused him to have worsening nausea, that was also prior to NG tube placement. Acetaminophen 1 g IV every 8 hours as needed for mild pain or fever Toradol 15 mg IV every 6 hours as needed for moderate pain Dilaudid 0.5 mg IV every 3 hours as needed for severe pain Electrolyte disturbances/hypokalemia/hypomagnesemia- Patient currently getting NSS 1 L from the ED Change IV fluids to NSS + KCl 20 mill equivalents at 80 mL/h x 1 L Give magnesium sulfate 2 g IV CBC with differential, chemistry profile and magnesium level every morning Iron deficiency anemia B12 deficiency History of Present Illness Chief Complaint: The patient presents to the emergency department with complaint of nausea that developed around 2:00 this morning, for which she called the surgical office at [facility], who recommended that he take Zofran. The patient reports that show sooner if he took Zofran, he felt significant more nauseous, with worse abdominal pain, and when he called back to [facility], advised him to come to the [facility] emergency department for assessment. Primary Care Provider: Ron Diallo III, JANINE The patient is a 54-year-old male with a past medical history including: Cancer metastatic to liver, primary adenocarcinoma of ascending colon, hypothyroidism. He is status post partial colectomy of the ascending colon and partial resection liver at [facility] on 09/14/2024, and was discharged on 09/20/2024. Patient had been doing well until the past 24 hours, where he started develop symptoms of nausea, with significantly worsened at about 2:00 this morning as noted. Workup in the emergency department for [facility] clued a CT scan of abdomen pelvis which showed small bowel dilation with transition point in the abdomen likely represents small bowel obstruction. Postoperative changes related to recent resection with anastomosis in the right mid abdomen. Lesion in right liver with air-fluid level measuring 4.3 x 5 0 cm with adjacent surgical clips, could represent a hepatic abscess but postoperative changes. Patient had an NG tube placed to low intermittent suction, was given Phenergan IV and Dilaudid 0.5 mg IV by the ED. Surgical consult in the ED as the patient admitted to the hospitalist medicine service. Patient and note that if the patient requires surgery, they want to return to [facility] where the original surgery was performed. Allergies Allergy/AdvReac Type Severity Reaction Status Date / Time No Known Allergies Allergy Verified 08/18/24 14:07 Home Medications Medication Instructions Recorded Confirmed Type acetaminophen 500 mg tablet 2,000 mg PO DIRECTED PRN Pain 09/12/24 09/12/24 History levothyroxine 75 mcg tablet 75 mcg PO DAILY 09/12/24 09/12/24 History ondansetron 4 mg disintegrating 4 mg PO DIRECTED PRN n/v 09/12/24 09/12/24 History tablet tramadol 50 mg tablet 50 mg PO DIRECTED PRN Pain 09/12/24 09/12/24 History Past Med/Surg History Problem List (Updated 09/23/24 @ 06:48 by Joshua Alexander MD) Status post colon resection Small bowel obstruction Bowel obstruction (Acute) Obesity (BMI 30.0-34.9) Colon carcinoma metastatic to liver Primary adenocarcinoma of ascending colon Colon adenocarcinoma (Acute) Medical History (Updated 09/23/24 @ 06:48 by Joshua Alexander MD) Hypothyroidism Arthritis History of anesthesia reaction in 05/2024, w/tooth extraction under anesthesia, oral dr told pt he woke up "under the anesthesia and may have needed a little more" No known health problems Surgical History (Updated 09/23/24 @ 06:48 by Joshua Alexander MD) H/O colonoscopy Hx of tooth extraction Family History Grandmother No problems noted. Grandmother (Maternal) Colorectal cancer Brother Chondrosarcoma Denies family history of Ovarian cancer Prostate cancer Myocardial infarction Breast cancer Social History Smoking Status: Never smoker Second Hand Exposure: No (hx as child); Do You Dip or Chew Tobacco: No; Hx Alcohol Use: Yes Hx Substance Use: No Preferred Language: Nigerian Communication Ability: Effective Visual Impairment: Limited Hearing Ability: Hard of Hearing Workers Compensation Administrator Required: No Beliefs That Will Affect Care: None marital status: Current Living Situation: Spouse Current Living Situation Comment: current occupational status: employed 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 How many Children do You have: 0 Feels Safe at Home: Yes Childhood Exposure to Second-Hand Smoke: Yes Diet: regular caffeine: Yes during the past year weight has: remained stable Dental Care, Regularly: No Physical Activity Frequency: Daily Seatbelt Use: always Sunscreen Use: Yes Assistive Devices: Glasses Review of Systems Review of Systems: The patient denies chest pain, palpitations, shortness of breath, dyspnea on exertion, cough, lower extremity swelling, sore throat, fevers, chills, sweats, blood in urine or stool, dysuria, urinary frequency or urgency, lightheadedness, dizziness, headache, memory loss, loss of consciousness, rash, abnormal bruising or bleeding, imbalance, focal weakness, numbness or tingling in arms or legs, generalized arthralgias or myalgias, back or neck pain, or night sweats. The review of systems is otherwise negative other than for that already noted above, and at least 10 systems have been reviewed. Physical Exam Physical Exam: The patient is awake, alert and oriented 3, normocephalic and atraumatic, lying in bed and in no acute distress. HEENT--PERRL, EOMI, mucous membranes and oropharynx dry. NG tube in place draining bilious fluid Neck--supple. No JVD. No bruits. Thyroid normal, trachea midline, no adenopathy. Heart--normal S1 and S2. No murmurs, rubs or gallops. Lungs--clear bilaterally, no respiratory distress, no accessory muscle use. Abdomen--absent bowel sounds. Distended. Generalized tenderness. Extremities--no cyanosis or clubbing. No edema. Dermatologic--normal skin turgor, normal color, no abnormal lymph nodes, no rash. Neurologic--cranial nerves II through XII grossly intact. Rheumatologic--normal range of motion. Psychiatric--normal affect. Results & Data Results & Data Vital Signs (Past 12 Hours) Vital Signs Temp Pulse Pulse Resp BP BP Pulse Ox 10/25/24 06:14 90 14 137/90 95 09/23/24 04:22 89 09/23/24 03:44 36.4 C L 106 H 18 127/82 98 O2 Del Method 09/23/24 06:14 Room Air 09/23/24 04:22 09/23/24 03:44 Room Air Laboratory Results Laboratory Results WBC 11.07 K/ul (4.8-10.8) H 09/23/24 04:11 RBC 4.08 M/uL (4.70-6.10) L 09/23/24 04:11 Hgb 10.2 g/dl (14.0-18.0) L 09/23/24 04:11 POC Hgb 10.5 g/dl (14.0-18.0) L 09/23/24 04:31 Hct 31.9 % (42.0-52.0) L 09/23/24 04:11 POC Hct 31 % (42-52) L 09/23/24 04:31 MCV 78.2 fL (80.0-100.0) L 09/23/24 04:11 MCH 25.0 pg (25.0-34.0) 09/23/24 04:11 MCHC 32.0 g/dL (32.0-36.0) 09/23/24 04:11 RDW Std Deviation 57.1 fL (36.4-46.3) H 09/23/24 04:11 RDW Coeff of Marianela 20.3 % (11.5-14.5) H 09/23/24 04:11 Plt Count 583 K/uL (130-400) H 09/23/24 04:11 MPV 9.6 fL (9.4-12.4) 09/23/24 04:11 Immature Gran % (Auto) 0.5 % 09/23/24 04:11 Neut % (Auto) 82.3 % 09/23/24 04:11 Lymph % (Auto) 6.5 % 09/23/24 04:11 [place] % (Auto) 9.2 % 09/23/24 04:11 Eos % (Auto) 1.0 % 09/23/24 04:11 Baso % (Auto) 0.5 % 09/23/24 04:11 Neut # (Auto) 9.11 K/uL (1.40-6.50) H 09/23/24 04:11 Lymph # (Auto) 0.72 K/uL (1.20-3.40) L 09/23/24 04:11 [place] # (Auto) 1.02 K/uL (0.11-0.59) H 09/23/24 04:11 Eos # (Auto) 0.11 K/uL (0.00-0.50) 09/23/24 04:11 Baso # (Auto) 0.05 K/uL (0.00-0.20) 09/23/24 04:11 Immature Gran # (Auto) 0.06 K/uL (0.01-0.20) 09/23/24 04:11 Polychromasia 2+ 09/23/24 04:11 Anisocytosis Present 09/23/24 04:11 POC Sodium 134 mmol/L (135-144) L 09/23/24 04:31 Sodium 134 mmol/L (136-145) L 09/23/24 04:11 POC Potassium 3.4 mmol/L (3.3-5.0) 09/23/24 04:31 Potassium 3.4 mmol/L (3.5-5.1) L 09/23/24 04:11 POC Chloride 91 mmol/L (101-112) L 09/23/24 04:31 Chloride 94 mmol/L (98-107) L 09/23/24 04:11 Carbon Dioxide 29 mmol/L (21-32) 09/23/24 04:11 POC Total CO2 30 mmol/L (24-31) 09/23/24 04:31 Anion Gap 11 (3-11) 09/23/24 04:11 POC Anion Gap 17.0 mmol/L (16-25) 09/23/24 04:31 POC BUN 6 mg/dl (7-18) L 09/23/24 04:31 BUN 8 mg/dl (6-23) 09/23/24 04:11 Creatinine 0.91 mg/dl (0.6-1.4) 09/23/24 04:11 POC Creatinine 1.1 mg/dl (0.6-1.3) 09/23/24 04:31 Est Cr Clr Drug Dosing 118.3 ml/min 09/23/24 04:11 eGFR 98.92 09/23/24 04:11 BUN/Creatinine Ratio 8.8 (10-20) L 09/23/24 04:11 Glucose 121 mg/dl (70-99(Fasting)) H 09/23/24 04:11 POC Glucose (other) 118 mg/dl (70-99) H 09/23/24 04:31 Calcium 9.2 mg/dl (8.6-10.3) 09/23/24 04:11 POC Ioniz Calcium Gerardo 1.09 mmol/l (1.12-1.32) L 09/23/24 04:31 Magnesium 1.8 mg/dl (1.7-2.4) 09/23/24 04:11 Total Bilirubin 1.0 mg/dl (0.2-1.0) 09/23/24 04:11 AST 25 U/L (13-39) 09/23/24 04:11 ALT 38 U/L (7-52) 09/23/24 04:11 Alkaline Phosphatase 106 U/L (34-104) H 09/23/24 04:11 Total Protein 7.0 gm/dl (6.0-8.3) 09/23/24 04:11 Albumin 3.7 gm/dl (3.4-5.0) 09/23/24 04:11 Globulin 3.3 gm/dl (2.5-4.0) 09/23/24 04:11 Albumin/Globulin Ratio 1.1 (0.9-2) 09/23/24 04:11 Lipase 39 U/L (11-82) 09/23/24 04:11 Urine Color Yellow 09/23/24 04:57 Urine Appearance Clear (Clear) 09/23/24 04:57 Urine pH 6.0 (4.5-7.5) 09/23/24 04:57 Ur Specific [place] 1.030 (1.000-1.030) 09/23/24 04:57 Urine Protein 1+ (Negative) H 09/23/24 04:57 Urine Glucose (UA) Negative (Negative) 09/23/24 04:57 Urine Ketones 1+ (Negative) H 09/23/24 04:57 Urine Blood Negative (Negative) 09/23/24 04:57 Urine Nitrite Negative (Negative) 09/23/24 04:57 Urine Bilirubin Negative (Negative) 09/23/24 04:57 Urine Urobilinogen Negative (Negative) 09/23/24 04:57 Ur Leukocyte Esterase Negative (Negative) 09/23/24 04:57 Urine WBC (Auto) 0-5 /hpf (0-5) 09/23/24 04:57 Urine RBC (Auto) 6-10 /hpf (0-2) H 09/23/24 04:57 U Hyaline Cast (Auto) 6-10 /lpf (0-2) H 09/23/24 04:57 U Epithel Cells (Auto) 0-2 /hpf (0-2) 09/23/24 04:57 Urine Bacteria (Auto) None Seen (None Seen) 09/23/24 04:57 Granular Casts Present /lpf (None Prsent) A 09/23/24 04:57 Impressions Abdomen/Pelvis CT 09/23/24 03:52 Exam(s): CT ABDOMEN + PELVIS With Contrast IV Amt: 93 ML OPTIRAY 320 EXAM: CT Abdomen and Pelvis With Intravenous Contrast CLINICAL HISTORY: Reason for exam: n/v, hx colon ca, recent resection, hx sbo. TECHNIQUE: Axial computed tomography images of the abdomen and pelvis with intravenous contrast. CTDI is 26.91 mGy and DLP is 1549.02 mGy-cm. Automated exposure control was utilized for the study. A dose lowering technique was utilized adhering to the principles of ALARA. CONTRAST: Patient received 93 ML OPTIRAY 320 of IV contrast COMPARISON: 09/12/24 FINDINGS: Lung bases: Right-sided small pleural effusion ABDOMEN: Liver: Lesion in the right liver with air-fluid level measuring 4.3 x 5.0 cm, with adjacent surgical clips. Gallbladder and bile ducts: Unremarkable. No calcified stones. No ductal dilation. Pancreas: Unremarkable. No mass. No ductal dilation. Spleen: Unremarkable. No splenomegaly. Adrenals: Unremarkable. No mass. Kidneys and ureters: Unremarkable. No solid mass. No hydronephrosis. Stomach and bowel: Small bowel dilation with transition point in the abdomen, could represent small bowel obstruction. No mucosal thickening. PELVIS: Appendix: No findings to suggest acute appendicitis. Bladder: Unremarkable. No mass. Reproductive: Unremarkable as visualized. ABDOMEN and PELVIS: Intraperitoneal space: Postoperative changes related to recent resection with anastomosis in the right mid abdomen. No free air. No significant fluid collection. Bones/joints: No acute fracture. No dislocation. Soft tissues: Postoperative changes along the ventral abdominal wall.. Vasculature: Unremarkable. No abdominal aortic aneurysm. Lymph nodes: Unremarkable. No enlarged lymph nodes. IMPRESSION: Small bowel dilation with transition point in the abdomen, likely represent small bowel obstruction. Postoperative changes related to recent resection with anastomosis in the right mid abdomen. Lesion in the right liver with air-fluid level measuring 4.3 x 5.0 cm, with adjacent surgical clips, could represent a hepatic abscess or postoperative changes. Electronically signed by: Sathish Rodriguez MD 09/23/24 05:22 AM Code Status & VTE Plan Code Status Full code VTE Prophylaxis Plan VTE Prophylaxis will be ordered: Yes PG Care Time/CCT Total # of Minutes Spent Total Time Spent with Patient: Total time spent is greater than 50% in coordination of care (as documented) at patient's floor/unit and/or counseling patient: Coding Level of Care Code 39923 INT INP/OBS CARE 3/75MIN Diagnoses Small bowel obstruction K56.609 Colon carcinoma metastatic to liver C18.9; C78.7 Primary adenocarcinoma of ascending colon C18.2 Colon adenocarcinoma C18.9 Status post colon resection Z90.49 Hypothyroidism E03.9
[2024-09-23] MEDS: MAGNESIUM SULFATE / D5W 1 GM/100 ML BAG IV SCH (07:21)
[2024-09-23] MEDS: NSS + 20MEQ KCL 20 MEQ/1,000 ML BAG IV SCH (07:32)
--- NOTE | 2024-09-23 07:50 | XRay Report ---
KUB CLINICAL HISTORY: Enteric tube placement. FINDINGS: An AP, portable, upright view of the lower chest and upper abdomen is compared to study samina ed 09/12/2024 and correlated with abdominal CT performed the same day 09/23/2024. An enteric tube has been placed. The tip projects below the diaphragm over the gastric fundus. Distended and gas-filled loops of small bowel in the upper abdomen indicate small bowel obstruction. These measure up to 5 cm in diameter. No intraperitoneal peritoneal free air is seen below the diaphragm. Suture material proj ects in the right upper quadrant. There are layering pleural effusions with dependent consolidation. The bony structures appear intact. A gas and fluid containing collection in the right upper quadrant was better assessed on today's CT scan. IMPRESSION: 1. An enteric tube has been placed as above. 2. Small bowel obstruction. 3. Pleural effusions with dependent consolidation. 4. A gas and fluid containing collection in the right upper quadrant/liver was better assessed on tod ay's CT scan. This is suspicious for abscess. Electronically signed by: Sheldon Anguiano M.D. 09/23/2024 7:48 AM
--- NOTE | 2024-09-23 07:53 | Hospitalist Progress Note ---
Date of Service September 23, 2024 Assessment & Plan (1) Small bowel obstruction: (2) Colon carcinoma metastatic to liver: (3) Primary adenocarcinoma of ascending colon: (4) Colon adenocarcinoma: (5) Status post colon resection: (6) Hypothyroidism: Plan Small bowel obstruction/status post partial colectomy of ascending colon/partial resection liver Pt with hx of colon CA with mets to liver who underwent colectomy and partial liver rescetion on 09/14 at [facility]. Pt returned ome on 09/20 without significant problems. Began having severe nausea overnight 09/22 despite use of Zofran. CT scan of abdomen pelvis in ED showed small bowel dilation with reina sition point in the abdomen likely represents small bowel obstruction. Postoperative changes related to recent resection with anastomosis in the right mid abdomen. Lesion in right liver with air-fluid level measuring 4.3 x 5 0 cm with adjacent surgical clips, could represent a hepatic abscess vs postoperative changes. NG tube placed in ED on 09/23 to low intermittent suction. He received Phenergan IV, Dilaudid 0.5 mg IV, Zosyn 4.5 mg IV, and pantoprazole 40mg IV in ED. Surgery was consulted - Surgery recommends Continue NGT, NPO and IV Zosyn -Continue NPO -Continue NG tube to low intermittent suction -Pantoprazole 40 mg IV qam -Zosyn 4.5 g IV q8hs -Phenergan 12.5 mg IV q6h PRN -Acetaminophen 1 g IV q8h PRNfor mild pain or fever -Toradol 15 mg IV q6h PRN for moderate pain -Dilaudid 0.5 mg IV q3h PRN for severe pain - Consider IR drainage of hepatic fluid to assess for infection - Wound nurse consult for incisional wound necrosis and assist with dressing changes Electrolyte disturbances/hypokalemia/hypomagnesemia- Na was 134, potassium was 3.4, magnesium was 1.8 and POC ionized Ca was 1.09 at presentation. Patient given NSS 1 L in ED. Given magnesium sulfate 1 g IV and 20mEq KCl IV. -Discontinued IV fluids to NSS + KCl 20 mill - Started LR 100ml/hr for maintenance IVF while NPO - Continue to monitor CBC with differential, CMP and magnesium level in AM labs Iron deficiency anemia B12 deficiency Supervising Physician Co-Signing Physician Notes I personally examined the patient and verified all tong points of history and exam, discussed case, and agree with decision making with Dr Taylor Subjective Pt is a 54 yo male who recently underwent right colectomy and partial liver resection secondary to colon cancer wit mets to the liver. Pt presented to the ED with severe nausea and abdominal pain. CT scan noted SBO and liver abscess vs postoperative changes. This morning, pt reports discomfort is primarily from the NGT. Nausea has improved. Review of Systems Review of Systems: As per HPI Physical Exam Physical Exam: The patient is awake, alert and oriented 3, normocephalic and atraumatic, lying in bed and in no acute distress. HEENT--PERRL, EOMI, mucous membranes and oropharynx dry. NG tube in place draining bilious fluid Neck--supple. No JVD. No bruits. Thyroid normal, trachea midline, no adenopathy. Heart--normal S1 and S2. No murmurs, rubs or gallops. Lungs--clear bilaterally, no respiratory distress, no accessory muscle use. Abdomen--absent bowel sounds. Distended. Generalized tenderness. Bandages covering incisional wounds Extremities--no cyanosis or clubbing. No edema. Dermatologic--normal skin turgor, normal color, no abnormal lymph nodes, no rash. Neurologic--cranial nerves II through XII grossly intact. Rheumatologic--normal range of motion. Psychiatric--normal affect. Results & Data Results & Data Vital Signs (Past 12 Hours) Vital Signs Temp Pulse Pulse Resp BP BP Pulse Ox 09/23/24 06:14 90 14 137/90 95 09/23/24 04:22 89 09/23/24 03:44 36.4 C L 106 H 18 127/82 98 O2 Del Method 09/23/24 06:14 Room Air 09/23/24 04:22 09/23/24 03:44 Room Air Resident Activity Tracking Resident Involvement: Resident Care Provided Care Provided: Adult Hospital Medicine
[2024-09-23] MEDS: PANTOprazole 40 MG/10 ML SYR IV ONE (08:27)
[2024-09-23] MEDS ORDERED: PROMETHAZINE 12.5 MG/50.5 ML BAG IV PRN (10:00)
--- NOTE | 2024-09-23 10:06 | Surgery Consultation ---
Date of Consultation September 23, 2024 Assessment & Plan (1) Status post colon resection: CT scan reviewed. We will discuss with interventional radiology regarding potential IR drainage of the hepatic abscess. Agree with the Zosyn. Keep the NG tube and IV fluids. (2) Small bowel obstruction: (3) Colon adenocarcinoma: (4) Postoperative abscess: History of Present Illness Attending Physician: Joshua Alexander MD History of Present Illness 54-year-old male who is recently status post open right hemicolectomy and partial hepatectomy done at [facility]. He was just discharged about 3 days ago. He developed nausea and vomiting at home and presented to the emergency room. CT scan reveals small bowel obstruction as well as potential abscess at the site of liver resection. Allergies Allergy/AdvReac Type Severity Reaction Status Date / Time orange Allergy Intermediate Vomiting Unverified 09/23/24 09:20 Home Medications Medication Instructions Recorded Confirmed Type acetaminophen 500 mg tablet 2,000 mg PO DIRECTED PRN Pain 09/12/24 09/23/24 History levothyroxine 75 mcg tablet 75 mcg PO DAILY 09/12/24 09/23/24 History ondansetron 4 mg disintegrating 4 mg PO Q6H PRN n/v 09/12/24 09/23/24 History tablet Phospha 250 Neutral 250 mg PO QID 09/23/24 09/23/24 History enoxaparin 40 mg/0.4 mL 40 mg subcut DAILY 09/23/24 09/23/24 History subcutaneous syringe gabapentin 100 mg capsule 100 mg PO Q8H 09/23/24 09/23/24 History metoclopramide HCl 5 mg tablet 5 mg PO QID 09/23/24 09/23/24 History oxycodone 5 mg tablet 5 mg PO Q4H PRN Pain 09/23/24 09/23/24 History polyethylene glycol 3350 17 17 g PO DAILY PRN Constipation 09/23/24 09/23/24 History gram/dose oral powder (Miralax) sennosides 8.6 mg tablet (Senokot) 17.2 mg PO BID 09/23/24 09/23/24 History Patient History Medical History (Updated 09/23/24 @ 10:06 by Narayan Venegas DO) Hypothyroidism Arthritis History of anesthesia reaction in 05/2024, w/tooth extraction under anesthesia, oral dr told pt he woke up "under the anesthesia and may have needed a little more" No known health problems Surgical History (Updated 09/23/24 @ 06:48 by Joshua Alexander MD) H/O colonoscopy Hx of tooth extraction Family History Grandmother No problems noted. Grandmother (Maternal) Colorectal cancer Brother Chondrosarcoma Denies family history of Ovarian cancer Prostate cancer Myocardial infarction Breast cancer Social History Smoking Status: Never smoker Second Hand Exposure: No (hx as child); Do You Dip or Chew Tobacco: No; Hx Alcohol Use: Yes Hx Substance Use: No Preferred Language: Bulgarian Communication Ability: Effective Visual Impairment: Limited Hearing Ability: Hard of Hearing Pulp Grinder Feeder Required: No Beliefs That Will Affect Care: None marital status: Current Living Situation: Spouse Current Living Situation Comment: current occupational status: employed 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 How many Children do You have: 0 Feels Safe at Home: Yes Childhood Exposure to Second-Hand Smoke: Yes Diet: regular caffeine: Yes during the past year weight has: remained stable Dental Care, Regularly: No Physical Activity Frequency: Daily Seatbelt Use: always Sunscreen Use: Yes Assistive Devices: Glasses Review of Systems Review of Systems: All systems reviewed & are unremarkable except as noted in HPI & below Physical Exam Constitutional: WD/WN, vitals as above no acute distress and not ill appearing Eyes: PERRL, conjunctivae normal, anicteric sclerae EOM intact bilaterally ENMT: external ear and nose normal, oropharynx normal Ears: no hearing impairment Neck: trachea midline, no thyromegaly Respiratory: normal respiratory effort; no respiratory distress and does not use accessory muscles Cardiovascular: Rate/Rhythm: regular rate and regular rhythm Gastrointestinal (Abdomen): Soft. His incision is red with drainage of purulent fluid from the superior pole primarily. Mildly tender. Skin: no rashes, warm and dry Psychiatric: Orientation: alert, oriented x 3 and cooperative Results & Data Vital Signs (Past 12 Hours) Vital Signs Temp Pulse Pulse Resp BP BP Pulse Ox 09/23/24 09:00 78 12 146/96 H 91 09/23/24 08:27 77 10/25/24 08:00 79 14 130/76 93 09/23/24 06:14 90 14 137/90 95 09/23/24 04:22 89 09/23/24 03:44 36.4 C L 106 H 18 127/82 98 O2 Del Method 09/23/24 09:00 Room Air 09/23/24 08:27 09/23/24 08:00 Room Air 09/23/24 06:14 Room Air 09/23/24 04:22 09/23/24 03:44 Room Air PG Care Time/CCT Total # of Minutes Spent Total Time Spent with Patient: Total time spent is greater than 50% in coordination of care (as documented) at patient's floor/unit and/or counseling patient: Coding Level of Care Code 59106 IN/OBS CONSULT LVL 3,45M Diagnoses Status post colon resection Z90.49 Small bowel obstruction K56.609 Colon adenocarcinoma C18.9 Postoperative abscess T81.49XA
[2024-09-23] MEDS: HYDROmorphone INJ 0.5 MG/0.5 ML SYR IV PRN (11:06)
[2024-09-23] MEDS: PIPERACILLIN/TAZOBACTAM 4.5 GM/100 ML BAG IV SCH (11:31)
--- NOTE | 2024-09-23 17:04 | Discharge Summary ---
Discharge Summary Date of Service September 23, 2024 Principal Dx & Hospital Course #1 = Principal Diagnosis (1) Small bowel obstruction: (2) Colon carcinoma metastatic to liver: (3) Primary adenocarcinoma of ascending colon: (4) Colon adenocarcinoma: (5) Status post colon resection: (6) Hypothyroidism: Plan Small bowel obstruction/status post partial colectomy of ascending colon/partial resection liver -SBO vs ileus -- recent surgery at [place] -stable w NGT, no immediate surgical indictions -[place] surgical team called and understandably would like him back there to re-evaluate- pt agrees with this, all set up for transfer hepatic fluid collection -clinical presentation inconsistent with abscess, also timing from surgery seems quite quick for significant infection to have ensued (although possible). currently on zosyn until clearly delineated - would probably have IR needle drainage to best quickly discern - but obviously will defer to tertiary in this regard post op skin healing issues -local wound care, eval by surgical team Electrolyte disturbances/hypokalemia/hypomagnesemia- -due to SBO/PO intake Iron deficiency anemia B12 deficiency Notes For Next Care Provider Medication Changes From Visit per [facility] Admission HPI Per Admitting Provider The patient is a 54-year-old male with a past medical history including: Cancer metastatic to liver, primary adenocarcinoma of ascending colon, hypothyroidism. He is status post partial colectomy of the ascending colon and partial resection liver at [facility] on 09/14/2024, and was discharged on 09/20/2024. Patient had been doing well until the past 24 hours, where he started develop symptoms of nausea, with significantly worsened at about 2:00 this morning as noted. Workup in the emergency department for [facility] clued a CT scan of abdomen pelvis which showed small bowel dilation with transition point in the abdomen likely represents small bowel obstruction. Postoperative changes related to recent resection with anastomosis in the right mid abdomen. Lesion in right liver with air-fluid level measuring 4.3 x 5 0 cm with adjacent surgical clips, could represent a hepatic abscess but postoperative changes. Patient had an NG tube placed to low intermittent suction, was given Phenergan IV and Dilaudid 0.5 mg IV by the ED. Surgical consult in the ED as the patient admitted to the hospitalist medicine service. Patient and note that if the patient requires surgery, they want to return to [facility] where the original surgery was performed. Updated Medication List Medication Instructions Recorded Confirmed Type acetaminophen 500 mg tablet 2,000 mg PO DIRECTED PRN Pain 09/12/24 09/23/24 History levothyroxine 75 mcg tablet 75 mcg PO DAILY 09/12/24 09/23/24 History ondansetron 4 mg disintegrating 4 mg PO Q6H PRN n/v 09/12/24 09/23/24 History tablet Phospha 250 Neutral 250 mg PO QID 09/23/24 09/23/24 History enoxaparin 40 mg/0.4 mL 40 mg subcut DAILY 09/23/24 09/23/24 History subcutaneous syringe gabapentin 100 mg capsule 100 mg PO Q8H 09/23/24 09/23/24 History lactated Ringers 100 ml continuous IV infusion UD 09/23/24 Rx #6,000 mL metoclopramide HCl 5 mg tablet 5 mg PO QID 09/23/24 09/23/24 History oxycodone 5 mg tablet 5 mg PO Q4H PRN Pain 09/23/24 09/23/24 History polyethylene glycol 3350 17 17 g PO DAILY PRN Constipation 09/23/24 09/23/24 History gram/dose oral powder (Miralax) sennosides 8.6 mg tablet (Senokot) 17.2 mg PO BID 09/23/24 09/23/24 History Hospital Stay Data Consultations 09/23/24 06:00 ED Decision to Admit Stat 09/23/24 08:55 Consult General Surgery Routine 09/23/24 16:32 Burn CD for patient Stat Diagnostic Imagining Performed 09/23/24 03:52 CT abd pelvis IV con only Stat Pending Results Patient Have Any Pending Studies at Discharge: No Discharge Instructions Given to Patient (Per Discharging Provider) per tertiary care center on arrival Total Time Total Time Spent Total Time Spent (In Minutes): <30
--- NOTE | 2024-09-23 17:04 | Billing Data ---
Date of Service September 23, 2024 Coding Level of Care Code 90885 IN/OBS DISCH 30 MIN/LESS
[2024-09-23] MEDS: LACTATED RINGER'S 1,000 ML IV SCH (17:55)
--- NOTE | 2024-09-23 18:31 | Billing Data ---
Date of Service September 23, 2024 Coding Level of Care Code 40409 SUB INP/OBS CARE 50MIN Comment disregard [id number], didn't leave today
[2024-09-23 20:05] VITALS: RESP 16
[2024-09-24 06:24] LABS: Basophils # (auto) 0.03 K/uL (0.00-0.20); Basophils % (auto) 0.3 %; Eosinophils # (auto) 0.09 K/uL (0.00-0.50); Eosinophils % (auto) 0.8 %; Hemoglobin 9.3 g/dl (14.0-18.0); Immature Granulocytes # (auto) 0.06 K/uL (0.01-0.20); Immature Granulocytes % (auto) 0.6 %; Lymphocytes # (auto) 0.83 K/uL (1.20-3.40); Lymphocytes % (auto) 7.7 %; Mean Corpuscular Hemoglobin 24.9 pg (25.0-34.0); Mean Corpuscular Volume 80.2 fL (80.0-100.0); Mean Platelet Volume 9.1 fL (9.4-12.4); Monocytes % (auto) 9.3 %; Neutrophils # (auto) 8.71 K/uL (1.40-6.50); Neutrophils % (auto) 81.3 %; Platelet Count 603 K/uL (130-400); RDW Coefficient of Variation 20.9 % (11.5-14.5); RDW Standard Deviation 59.2 fL (36.4-46.3); Red Blood Count 3.74 M/uL (4.70-6.10); White Blood Count 10.72 K/ul (4.8-10.8)
[2024-09-24 06:46] LABS: Anisocytosis Present; Hypochromasia Present; Polychromasia 1+
[2024-09-24 06:54] LABS: Partial Thromboplastin Ratio 1.2; Partial Thromboplastin Time 32 Seconds (21-31); Prothrombin Time 11.2 Seconds (9.0-12.0)
[2024-09-24 07:03] LABS: Albumin Level 3.2 gm/dl (3.4-5.0); Bilirubin,Total 0.7 mg/dl (0.2-1.0); Calcium 8.1 mg/dl (8.6-10.3); Magnesium 1.9 mg/dl (1.7-2.4); Potassium 3.9 mmol/L (3.5-5.1)
[2024-09-24 07:09] LABS: Albumin Globulin Ratio 1.2 (0.9-2); Creatinine Clr Calc Pharmacy 122.3 ml/min; Globulin 2.7 gm/dl (2.5-4.0); Total Protein 5.9 gm/dl (6.0-8.3)
--- NOTE | 2024-09-24 07:09 | Hospitalist Progress Note ---
Date of Service September 24, 2024 Assessment & Plan (1) Small bowel obstruction: (2) Colon carcinoma metastatic to liver: (3) Primary adenocarcinoma of ascending colon: (4) Colon adenocarcinoma: (5) Status post colon resection: (6) Hypothyroidism: Plan Pt is a 54 yo male who recently underwent right colectomy and partial liver resection secondary to colon cancer wit mets to the liver. Pt presented to the ED with severe nausea and abdominal pain. CT scan noted SBO and liver abscess vs postoperative changes. Small bowel obstruction/status post partial colectomy of ascending colon/partial resection liver S/P Colectomy and partial liver resection on 09/14 at [facility]. CTAP: Postoperative changes related to recent resection with anastomosis in the right mid abdomen. Lesion in right liver with air-fluid level measuring 4.3 x 5 0 cm with adjacent surgical clips, could represent a hepatic abscess vs postoperative changes. -Surgery recommends Continue NGT, NPO and IV Zosyn -Continue NPO -Continue NG tube to low intermittent suction -Pantoprazole 40 mg IV qam -Zosyn 4.5 g IV q8hs -Phenergan 12.5 mg IV q6h PRN -Acetaminophen 1 g IV q8h PRN for mild pain or fever -Toradol 15 mg IV q6h PRN for moderate pain -Dilaudid 0.5 mg IV q3h PRN for severe pain -Consider IR drainage of hepatic fluid to assess for infection - Transfer to [place] as per his surgeons there and patient's agreement. Electrolytes: Na was 134---< 134 K: 3.9.......< 3.4 M.9----<1.8 - Continue LR 100ml/hr for maintenance IVF while NPO - Continue to monitor CBC with differential, CMP and magnesium level in AM labs Admission and Anticipated Discharge Date Admission Date: September 23, 2024 Subjective This morning, nausea is improved. He feels much better than when he was here. Had small bowel movement but abdomen still feel distended as per patient. He complains of pain in lower abdomen Bilateral, crampy, shooting type of pain despite Dilaudid and feel pain increases for 10 minutes after Dilaudid and falls down afterwards. Review of Systems Review of Systems: As per HPI Physical Exam Physical Exam: Constitutional: Well appearing, No acute distress, Looks pale, lying in propped op in bed. HEENT: Atraumatic, Normocephalic, No conjunctival injection CVS: S1 S2 no murmur, Regular Rhythm, no LE edema Respiratory: BL equal air entry with NVBS. No rhonchi, wheezes, or crackles. No increased work of breathing GI: Tense distended abdomen, Bowel sound sluggish but +nt MSK: No gross deformities noted Skin: Warm, Dry, No rashes Neuro: Alert, Oriented to TPP, No Focal deficit Psych: Mood and Affect congruent, Cooperative on exam Results & Data Results & Data Vital Signs (Past 12 Hours) Vital Signs Temp Pulse Resp BP Pulse Ox O2 Del Method 09/23/24 20:05 37 C 91 H 16 145/84 H 93 Room Air
[2024-09-24 07:19] VITALS: PULSE 92
[2024-09-24] MEDS: PANTOprazole 40 MG/10 ML SYR IV SCH (09:19)
--- NOTE | 2024-09-24 09:39 | Surgery Progress Note ---
Date of Service September 24, 2024 Assessment & Plan (1) Postoperative abscess: Plan: pt being transferred back to [facility] today no urgent indication for surgical intervention our IR did not feel comfortable draining liver abcess...will likely be done at [facility] (2) Status post colon resection: (3) Colon carcinoma metastatic to liver: Admission and Anticipated Discharge Date Admission Date: September 23, 2024 Subjective pt seen. feeling ok. had a bm which improved his discomfort ngt accidentally fell out early this AM. no nausea currently Physical Exam Constitutional: WD/WN, vitals as above no acute distress and not ill appearing Eyes: PERRL, conjunctivae normal, anicteric sclerae EOM intact bilaterally ENMT: external ear and nose normal, oropharynx normal Ears: no hearing impairment Neck: trachea midline, no thyromegaly Respiratory: normal respiratory effort; no respiratory distress and does not use accessory muscles Cardiovascular: Rate/Rhythm: regular rate and regular rhythm Gastrointestinal (Abdomen): abd: soft. incision still with purulent drainage but less red. dressings changed Skin: no rashes, warm and dry Psychiatric: Orientation: alert, oriented x 3 and cooperative Results & Data Vital Signs (Past 12 Hours) Vital Signs Temp Pulse Resp BP Pulse Ox O2 Del Method 09/24/24 07:19 37.1 C 92 H 16 148/78 H 92 Room Air PG Care Time/CCT Total # of Minutes Spent Total Time Spent with Patient: Total time spent is greater than 50% in coordination of care (as documented) at patient's floor/unit and/or counseling patient: Coding Level of Care Code 74288 SUB INP/OBS CARE 12/24MIN Diagnoses Postoperative abscess T81.49XA Status post colon resection Z90.49 Colon carcinoma metastatic to liver C18.9; C78.7
--- NOTE | 2024-09-24 11:51 | Billing Data ---
Date of Service September 24, 2024 Coding Level of Care Code 80478 IN/OBS DISCH 30 MIN/LESS Comment disregard 238 from 09/23, 09/23 code now 233 (again)
--- NOTE | 2024-09-24 13:09 | XRay Report ---
KUB CLINICAL HISTORY: Enteric tube placement. FINDINGS: 2 AP, portable, supine radiographs of the abdomen are compared to study dated 09/23/2024 an d correlated with abdominal CT dictated 09/23/2024. An enteric tube is in place. The tip projects bel ow the diaphragm over the gastric fundus. Distended and gas-filled loops of small bowel similar previ ous and indicate persistent obstruction. These measure up to 5 cm in diameter. No evidence of intrape ritoneal free air is seen on these supine images. Suture material and surgical clips project over the upper abdomen in the right midabdomen. There are layering pleural effusions with dependent consolida tion. The bony structures appear intact. A gas and fluid containing collection in the right upper juan m drant was better assessed on yesterday's CT scan. IMPRESSION: 1. An enteric tube is in place as above. 2. Persistent small bowel obstruction. 3. Pleural effusions with dependent consolidation. 4. A gas and fluid containing collection in the right upper quadrant/liver was better assessed on the recent CT scan. This remains suspicious for abscess. Electronically signed by: Sheldon Anguiano M.D. 09/24/2024 1:07 PM
[2024-09-24 14:56] VITALS: BP 148/87; TEMP 97.9; O2SAT 97
== END 2024-09-24 20:30 | disposition short-term general hospital (02) | DRG 862 ==
LOC: SUATTDRO → ED 03:40 → SUATTDRO 06:40 → EDINP 06:40 → 3E 15:05